=== PATIENT | female | born 1970 | race Caucasian/White ===

== ENCOUNTER → 2017-04-11 16:13 | Outpatient (CLI) | payer OTHER, SELFPAY ==
--- NOTE | 2017-04-11 16:21 | MM_ITS ---
MM Dig screening mamm BI w/CAD CAD Screening ORDERING PHYSICIAN : Gladis Valdez PATIENT AGE: 47 years GENDER: Female COMPARISON: Previous mammograms: 2015 and September 2012. INDICATION: No hormones. No new complaints.Family history. Maternal grandmother with breast cancer TECHNIQUE: Standard CC and MLO images were obtained. R2 CAD reviewed. FINDINGS: Mild to moderate scattered fibroglandular elements bilaterally. Mild/moderate fatty changes bilaterally. RIGHT BREAST:Stable small lymph nodes right axilla as well as a deep intramammary lymph node at the lateral right breast. At the inframammary fold again note small punctate benign calcifications. Stable and unchanged. . LEFT BREAST:There is also a stable intramammary node at the deep lateral left breast. No new findings otherwise left breast. Stable small dermal calcifications inferior left breast near inframammary fold IMPRESSION: ...... No significant appearing new findings . Follow-up in one year adequate BI-RADS Category: 2 Benign Finding(s) RECOMMENDED FOLLOW-UP: 1YR - 1 YEAR FOLLOW-UP (A letter has been sent to the patient regarding results of the study.)
== END ==
PROVIDERS: Family Provider Family Medicine; PCP Family Medicine; Visit Provider Nurse Practitioner
DX: Z12.31 Encounter for screening mammogram for malignant neoplasm of breast (principal)
CPT/HCPCS: 77067

== ENCOUNTER → 2017-08-26 09:59 | Outpatient (POV) | payer OTHER, SELFPAY | PROVIDERS: Visit Provider Physician Assistant | DX: Z00.00 Encounter for general adult medical examination without abnormal findings (principal) ==

== ENCOUNTER → 2018-01-21 08:56 | Outpatient (POV) | payer OTHER, SELFPAY | PROVIDERS: Family Provider Family Medicine; Visit Provider Dermatology | DX: Z00.00 Encounter for general adult medical examination without abnormal findings (principal) ==

== ENCOUNTER → 2018-07-17 08:12 | Outpatient (POV) | payer OTHER, SELFPAY | PROVIDERS: Visit Provider Dentist | DX: Z00.00 Encounter for general adult medical examination without abnormal findings (principal) ==

== ENCOUNTER → 2019-01-27 13:35 | Outpatient (POV) | payer OTHER, SELFPAY | PROVIDERS: Visit Provider Dermatology | DX: Z00.00 Encounter for general adult medical examination without abnormal findings (principal) ==

== ENCOUNTER → 2019-02-20 10:14 | Outpatient (CLI) | payer OTHER, SELFPAY ==
--- NOTE | 2019-02-20 10:16 | US_ITS ---
PROCEDURE: US TRANSVAGINAL CLINICAL INDICATION: US T/V- pelvic pain- check for cyst COMPARISON: No exams were available for comparison FINDINGS: There has been prior hysterectomy. Vaginal cuff has an unremarkable appearance. In the left adnexal region there is a 8 7 cm cyst. There appears to be a loose 1 small septation. No other abnormalities evident. IMPRESSION: Prior hysterectomy with 8 cm left-sided pelvic cyst which may be due to ovarian remnant cyst. Recommend follow-up to confirm stability/resolution Dictated by: Louie Villatoro MD 02/20/2019 18:11 Electronically signed by Louie Villatoro MD in [place] 02/20/2019 18:11
== END ==
PROVIDERS: PCP Nurse Practitioner Family; Visit Provider Nurse Practitioner Obstetrics & Gynecology
DX: R10.2 Pelvic and perineal pain (principal)
CPT/HCPCS: 76830

== ENCOUNTER → 2019-03-17 09:01 | Outpatient (CLI) | payer OTHER, SELFPAY ==
--- NOTE | 2019-03-17 09:03 | ECG_ITS ---
APPROVED REPORT Exam: Resting ECG HR:71 bpm ECG Measurements Heart Rate 71 AXES AL 150 P 52 QRSd 88 QRS 30 QT 380 T 46 QTc 412 <Conclusion> Normal sinus rhythm Possible Left atrial enlargement Borderline ECG Electronically signed by : Fili Bardales, 03/17/2019 14:10:19
[2019-03-17 09:52] LABS: Basophils % 0.6 % (0.1-2.0); Eosinophils # 0.1 K/mm3 (0.0-0.4); Eosinophils % 2.1 % (0.1-12.0); Hematocrit 41.9 % (37.0-47.0); Hemoglobin 13.6 g/dL (12.2-16.2); Lymphocytes # 2.3 K/mm3 (0.7-4.5); Lymphocytes % 37.7 % (10-50); Mean Corpuscular HGB Conc 32.3 g/dL (31.8-35.4); Mean Corpuscular Hemoglobin 31.3 pg (27.0-31.2); Mean Corpuscular Volume 96.8 fl (81-99); Mean Platelet Volume 7.2 fl (7.4-10.4); Monocytes # 0.4 K/mm3 (0.1-1.0); Monocytes % 6.6 % (1.7-9.3); Neutrophils # 3.2 K/mm3 (1.8-7.8); Neutrophils % 53.1 % (37.0-80.0); Platelet Count 442 K/mm3 (142-424); Red Blood Count 4.33 M/mm3 (4.20-5.40); Red Cell Distribution Width 13.3 % (11.5-17.5); White Blood Count 6.1 K/mm3 (4.8-10.8)
[2019-03-17 10:52] LABS: Anion Gap 13.4 mEq/L (5-15); Blood Urea Nitrogen 12 mg/dL (7-18); Calcium 8.8 mg/dL (8.5-10.1); Carbon Dioxide 29 mmol/L (21.0-32.0); Chloride 102 mmol/L (98-107); Creatinine,Serum 0.61 mg/dL (0.55-1.02); Estimated Glomerular Filt Rate 104 ml/min (>60); GFR (African American) 126 ML/MIN (>60); Glucose 93 mg/dL (74-106); Potassium 4.4 mmoL/L (3.5-5.1); Sodium 140 mmol/L (136-145)
[2019-03-18 15:31] LABS: Estradiol 118.1 pg/mL (.); FSH 9.3 mIU/mL (.); LH 9.8 mIU/mL (.)
== END ==
PROVIDERS: PCP Family Medicine; Visit Provider Nurse Practitioner Obstetrics & Gynecology
DX: N83.202 Unspecified ovarian cyst, left side (principal); R10.2 Pelvic and perineal pain; R53.82 Chronic fatigue, unspecified; Z01.818 Encounter for other preprocedural examination
CPT/HCPCS: 36415; 80048; 82670; 83001; 83002; 85025; 93005

== ENCOUNTER 2019-10-02 15:25 | Emergency (ER) | payer OTHER, SELFPAY ==
[2019-10-02 16:05] VITALS: BP 129/87; PULSE 87; RESP 19; TEMP 37.1; O2SAT 94; BMI 33.5
--- NOTE | 2019-10-02 16:34 | XR_ITS ---
PROCEDURE: XR CHEST 2V Patient Age:49Y CLINICAL HISTORY: cough-wheezing coughing exposure to covid Smoker COMPARISON: ABDPELW/O CT ABD PELVIS W/O CONTRAST from 06/30/2013 ABDPELW/O CT ABD PELVIS W/O CONTRAST from 11/19/2013 FINDINGS: Th lungs well expanded and clear with nothing definitely acute Overlapping breast density adds to density towards the lung bases bilaterally particularly on the left but I see no convincing for seem definitive infiltrate. 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 No definitive associated findings on the frontal projection either. Most likely baseline appearance. Heart normal size with normal pulmonary vascularity... Isha and no pleural effusion or pneumothorax but mediastinal structures satisfactory. Previous anterior fusion lower C-spine. No acute bony abnormalities. Chest wall intact IMPRESSION: Nothing definitely acute. No definitive pneumonia Upper normal markings towards the posterior lung bases I believe is similar to previous studies However if symptoms should progress consider follow-up CXR Dictated by: Inocencio Gomez MD 10/04/2019 21:32 Electronically signed by Inocencio Gomez MD in [place] 10/04/2019 21:32
--- NOTE | 2019-10-02 16:42 | HMH.EDUTC ---
[facility] [place] Clinical Impression: Encounter for laboratory testing for COVID-19 virus Disposition: Home, Self-Care Condition on Discharge: Good Instructions: DI for Cough -- Adult, Preventing the Spread of Coronavirus Discharge Instructions Additional Instructions: Make sure to call back on Saturday to the [facility] to see if your test results are back *No work until negative test result Go home and self quarantine as you was advised in the [facility] and was given handout to follow with Quarantine instructions DO not be out in public or around anyone until negative COVID test Return if needed Straight to ER if any life threatening symptoms Follow up with PCP if no improvement or any worsening of symptoms Continue to use inhaler as prescribed Prescriptions: Azithromycin [Z-Francis 250mg Tab] 250 mg PO DIRECTED #6 tab Transmission Status: Pending to [facility] #[id number] Referrals: Lalit Honeycutt MD [Primary Care Provider] - As needed Forms: Work/School Release Time of Disposition: 16:52 Medical Decision Making - Brennan Inquiry Pt receiving controlled substance: No Brennan was queried for this patient: No Vital Signs: 10/02/19 16:05 Temperature 98.7 F Temperature Source Oral Pulse Rate [Right Brachial] 87 Respiratory Rate 19 Blood Pressure [Right Arm] 129/87 Blood Pressure Mean [Right Arm] 101 Blood Pressure Source [Right Arm] Automatic Cuff Blood Pressure Position [Right Arm] Sitting 02 Sat by Pulse Oximetry 94 L Oxygen Delivery Method Room Air Orders (Tests/Meds): ORDERS Category Date Time Status CXR 2 view (NOT portable) [XR chest 2V] Stat Exams 10/02/19 16:34 Ordered SARS-CoV-2, [facility] ([place]) Stat Lab 10/02/19 16:00 Received - Radiology Data #1 Image(s): Chest Image Reviewed: Yes I reviewed the patient's radiology image Bronchitis [facility] [place] HPI - General Stated complaint: exposure to Covid 19 Time Seen by Provider: 10/02/19 16:42 Mode of Arrival: Ambulatory Source of Information: Patient Limitations: No Limitations Description of Symptoms (Recalled from Triage Doc. by RN): PATIENT STATES SHE WAS EXPOSED TO COVID-19 AT WORK ON SATURDAY. C/O DRY COUGH. DENIES ANY OTHER SYMPTOMS HEENT Symptoms (Recalled from RN notes): No Resp Symptoms (Recalled from RN notes): Yes Skin Symptoms (Recalled from RN notes): No MS Symptoms (Recalled from RN notes): No Functional Status (Recalled from RN notes): WNL - History of Present Illness Provider Complaint: Patient states that she was at work on Sat when she was exposed to patient with COVID-19 that tested positive the next day States that she has been having a dry cough but has a history of asthma and not sure if that is causing it and having runny nose States that she hasnt had fever that she is aware of and boss wanted her to come and get tested also everyday smoker - Related Data Home Medications Medication Instructions Recorded Confirmed hydrocodone 5 mg-acetaminophen 325 5 mg PO NEEDED PRN tab 08/01/18 04/06/19 mg tablet naproxen 500 mg tablet 500 mg PO DAILY tab 08/01/18 04/06/19 albuterol sulfate 90 mcg/actuation 2 % INHALATION DAILY 04/06/19 04/23/19 aerosol inhaler Previous Rx's Medication Instructions Recorded Ondansetron [Zofran 4mg ODT] 4 mg PO Q8HP PRN #20 tab.rapdis 03/01/19 estradiol 2 mg tablet 2 mg PO DAILY #90 tab 07/13/19 Azithromycin [Z-Francis 250mg Tab] 250 mg PO DIRECTED #6 tab 10/02/19 Allergies Allergy/AdvReac Type Severity Reaction Status Date / Time No Known Allergies Allergy Verified 04/06/19 12:00 - Worker's Comp Is this a Worker's Comp case?: No H History - Hepatitis A Screen Drug use history?: No High risk sexual behaviors?: No History of sexually transmitted infection?: No Currently employed?: No Childcare worker?: No Do you have indoor plumbing?: Yes Do you have electricity?: Yes Attestation statement:: This patient has been screened for Hepatitis A risk factors.
[2019-10-02 17:02] VITALS: BP 129/87; PULSE 87; RESP 19; TEMP 37.1; O2SAT 96
[2019-10-04 16:10] LABS: Covid-19 Nasal PCR Sendout UK Not Detected
== END 2019-10-02 17:02 | disposition home or self-care (01) ==
PROVIDERS: Emergency Provider Nurse Practitioner; PCP Family Medicine
DX: Z20.828 Contact with and (suspected) exposure to other viral communicable diseases (principal); J45.909 Unspecified asthma, uncomplicated; F17.210 Nicotine dependence, cigarettes, uncomplicated; Z90.49 Acquired absence of other specified parts of digestive tract; Z90.79 Acquired absence of other genital organ(s)
CPT/HCPCS: 71046; 99201; U0003

== ENCOUNTER → 2020-03-15 14:50 | Outpatient (CLI) | payer OTHER, SELFPAY ==
[2020-03-17 12:40] LABS: Covid-19 Nasal PCR Sendout Lex Not Detected
== END ==
PROVIDERS: PCP Family Medicine; Visit Provider Nurse Practitioner Family
DX: Z03.818 Encounter for observation for suspected exposure to other biological agents ruled out (principal)
CPT/HCPCS: U0004

== ENCOUNTER → 2020-03-22 08:59 | Outpatient (POV) | payer OTHER, SELFPAY | PROVIDERS: Visit Provider Dermatology | DX: Z00.00 Encounter for general adult medical examination without abnormal findings (principal) ==

== ENCOUNTER → 2020-10-10 14:15 | Outpatient (CLI) | payer OTHER, SELFPAY ==
--- NOTE | 2020-10-10 14:21 | XR_ITS ---
PROCEDURE: XR CHEST 2V CLINICAL HISTORY: COUGH COMPARISON: CR XR CHEST 2V from 10/02/2019 FINDINGS: The cardiomediastinal silhouette and pulmonary vascularity are within normal limits. The lungs are clear without infiltrates, suspicious nodules, or pleural effusions. No acute bony abnormalities. IMPRESSION: No acute findings. Dictated by: Louie Villatoro MD 10/10/2020 15:34 Louie Villatoro MD in [place] 10/10/2020 15:34
== END ==
PROVIDERS: PCP Family Medicine; Visit Provider Nurse Practitioner Family
DX: R05 Cough (principal); J45.20 Mild intermittent asthma, uncomplicated
CPT/HCPCS: 71046; 94060

== ENCOUNTER → 2020-11-18 10:28 | Outpatient (CLI) | payer OTHER, SELFPAY | PROVIDERS: Visit Provider Internal Medicine Gastroenterology | DX: Z01.812 Encounter for preprocedural laboratory examination (principal); Z11.52 Encounter for screening for COVID-19; Z12.11 Encounter for screening for malignant neoplasm of colon | CPT/HCPCS: U0003 ==

== ENCOUNTER 2020-11-21 09:26 | Day surgery (SDC) | payer OTHER, SELFPAY ==
[2020-11-16 11:56] VITALS: BMI 35.5
[2020-11-21 09:44] VITALS: BP 112/65; PULSE 89; RESP 16; TEMP 36.9; O2SAT 95
[2020-11-21 10:34] VITALS: O2SAT 98
--- NOTE | 2020-11-21 10:35 | HMH.PROC ---
[facility] Procedure Note Procedure Note:: Colonoscopy Procedure Report: Colonoscopy with cold snare polypectomy and cold biopsies Endoscopist: Ernesto Christian II, MD Referring physician: ROLO Esposito Date of Procedure: November 21, 2020 Equipment: Olympus 190 variable stiffness pediatric colonoscope Sedation: MAC sedation Indication: Mrs. Ribeiro is a 50-year-old female who is here for diagnostic colonoscopy. The patient was having alternating IBS with constipation and diarrhea. 7 to 8 months ago, she developed more urgency with diarrhea. She gets more loose bowel movements in the morning with bowel frequency and some urgency. Her diarrhea did improve with colestipol. She also has had left upper quadrant abdominal pain. She has had prior cholecystectomy in 2017. The patient does report some bloating. She does state that her maternal grandmother had colon cancer. She had a colonoscopy 10 years ago at which time a polyp was removed. The patient was taking naproxen and also [place] (by mouth 3 times daily). The patient reports no rectal bleeding or weight loss. Procedure: Prior to the procedure, a history and physical exam was performed, and patient's medications and allergies were reviewed. The risks, benefits and alternatives of the sedation and procedure were discussed with the patient. All questions were answered and informed consent was obtained. The patient was brought to the procedure room. Patient identification and proposed procedure were verified by the physician and the nurse. The patient was placed in a left lateral decubitus position and the scope was passed under direct vision. Throughout the procedure, the patient's blood pressure, pulse, and oxygen saturations were monitored continuously. The colonoscopy was accomplished without difficulty. The patient tolerated the procedure well. Findings: On digital rectal examination there was normal rectal tone. There were no external hemorrhoids. The colonoscope was introduced through the anal canal to the rectum and advanced to the cecum. The ileocecal valve and appendiceal orifice were identified. The scope was advanced a short distance into the ileum which appeared grossly normal. The scope was then withdrawn into the colon. The cecum, ascending and transverse colon and mucosa were grossly normal. Cold biopsies were taken from the right colon to rule out microscopic colitis. There was some angulation at the splenic flexure suggestive of splenic flexure syndrome. There were 2 diminutive polyps in the descending colon (both 4 mm) which were removed via cold snare polypectomy. There were mildly scattered diverticuli throughout the descending and sigmoid colon (LEFT colon). The rectum itself was normal. Upon retroflexion within the rectum there were grade 1-2 internal hemorrhoids. The preparation was excellent throughout with Napier Preparation Score of 9. The cecal time was 12 minutes. Impression: 1. Diminutive colonic polyps x2 2. 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 Mild left-sided diverticulosis 4. Grade 1-2 internal hemorrhoids Plan: I would continue colestipol and I would add bulking fiber (FiberCon). We will discuss dietary measures and treatment options for the functional intestinal/colonic pain (from splenic flexure syndrome). I will follow up the polyp histology and recommend repeat screening/surveillance colonoscopy again in 7 to 10 years.
--- NOTE | 2020-11-21 10:37 | P.PN_ITS ---
[facility] Anesthesia Checklist - Patient Identification Patient Identification: Arm Band - Structural Data Admitted From: Home Planned Operative Procedure/s: colonoscopy Consent for Planned Operative Procedure(s) Verified: Yes Verified Documents: Surgical Consent, History and Physical - NPO Status Verified Time NPO: 00:00 - Additional verifications Anesthesia Reactions: No Hx Blood Transfusions: No Blood Transfusion Reaction: No - Airway Assessment C-Spine Mobility Assessed: Yes (mp2) TMJ Mobility Assessed: Yes Dentition: Good Dentition - Neurological Assessment Level of Consciousness: Awake, Alert - Anesthesia Plan Anesthesia Risk discussed: Yes Anesthesia Plan: Verified ASA Class: II Anesthesia Type: MAC [facility] History I have reviewed the patient's past medical history: Yes Medical History: Reports:: Asthma Denies:: Cancer, Diabetes Mellitus Type 1, Diabetes Mellitus Type 2, Hypertension, Internal Pacemaker, MRSA, Seizures *Have you ever received a pneumonia vaccine?: No *Have you received a flu vaccine this season?: No Other Medical History: Reports: Other. Denies: Blood Transfusion Reaction Anesthesia experience/problems:: nac Other Surgeries: Yes: Cholecystectomy, , Dilation and Curettage, Hysterectomy-Total, Other. No: Pacemaker Amputation: No Fractures: No - *Social History Last grade of school completed: Some college Smoking Status: Current every day smoker Tobacco Type: cigarettes # Packs/Day (cigarettes): 1 Alcohol Intake: never Substance Use Type: denies use *Occupational Status:: employed Housing: house Household Members: family *Travel in the last 8 weeks: None Family Hx:: Cancer DIRECTOR OF HOME ECONOMICS history: Spontaneous , Additional DIRECTOR OF HOME ECONOMICS History
[2020-11-21 11:12] VITALS: BP 123/70; PULSE 81; RESP 12; TEMP 36.3; O2SAT 98
[2020-11-21 11:22] VITALS: BP 109/73; PULSE 84; RESP 16; O2SAT 95
[2020-11-21 11:32] VITALS: BP 122/68; PULSE 79; RESP 16; O2SAT 98
[2020-11-21 11:42] VITALS: BP 107/66; PULSE 70; RESP 16; TEMP 36.3; O2SAT 94
== END 2020-11-21 11:43 | disposition home or self-care (01) ==
LOC: OUTP 09:27
PROVIDERS: PCP Nurse Practitioner Family; Visit Provider Internal Medicine Gastroenterology
PROC: 0DJD8ZZ Inspection of Lower Intestinal Tract, Via Natural or Artificial Opening Endoscopic (ICD-10-PCS; CPT 45378; principal; 2020-11-21 10:30)
DX: K63.5 Polyp of colon; K63.9 Disease of intestine, unspecified; K57.32 Diverticulitis of large intestine without perforation or abscess without bleeding; K64.0 First degree hemorrhoids; J45.909 Unspecified asthma, uncomplicated; Z90.49 Acquired absence of other specified parts of digestive tract; Z72.0 Tobacco use; Z80.1 Family history of malignant neoplasm of trachea, bronchus and lung; Z83.3 Family history of diabetes mellitus; Z87.39 Personal history of other diseases of the musculoskeletal system and connective tissue; Z79.890 Hormone replacement therapy; Z79.899 Other long term (current) drug therapy; Z79.51 Long term (current) use of inhaled steroids
CPT/HCPCS: 45385; 45380

== ENCOUNTER → 2021-02-02 08:08 | Outpatient (CLI) | payer OTHER, SELFPAY | PROVIDERS: PCP Family Medicine; Visit Provider Nurse Practitioner | DX: Z20.822 Contact with and (suspected) exposure to COVID-19 (principal) | CPT/HCPCS: C9803; U0003; U0005 ==

== ENCOUNTER → 2021-04-28 10:18 | Outpatient (CLI) | payer OTHER, SELFPAY ==
--- NOTE | 2021-04-28 10:25 | US_ITS ---
FINAL REPORT TECHNIQUE: Ultrasound images of the kidneys and bladder were obtained. CLINICAL HISTORY: possible renal cyst FINDINGS: The right kidney measures 13.9 cm in length. It is normal in echogenicity. There is no hydronephrosis. No mass or cyst is identified. The left kidney measures 12.5 cm in length. It is normal in echogenicity. There is no hydronephrosis. No mass or cyst is identified. The spleen is unremarkable, measuring 9.3 cm. The urinary bladder is unremarkable. IMPRESSION: No hydronephrosis, cyst or mass. Reviewed, Interpreted and Dictated by Mejia Maguire III, MD Transcribed by Taylor Mann Authenticated by Mejia Maguire III, MD on 04/28/2021 11:31:14 AM [facility]
== END ==
PROVIDERS: PCP Family Medicine; Visit Provider Nurse Practitioner Family
DX: N28.1 Cyst of kidney, acquired (principal)
CPT/HCPCS: 76770

== ENCOUNTER → 2021-07-18 08:32 | Outpatient (POV) | payer OTHER, SELFPAY ==
[2021-07-18 10:12] LABS: Basophils # 0.1 K/mm3 (0-0.2); Basophils % 1.2 % (0.1-2.0); Eosinophils # 0.1 K/mm3 (0.0-0.4); Eosinophils % 1.5 % (0.1-12.0); Hematocrit 40.4 % (37.0-47.0); Hemoglobin 13.5 g/dL (12.2-16.2); Lymphocytes # 2.5 K/mm3 (0.7-4.5); Lymphocytes % 37.3 % (10-50); Mean Corpuscular HGB Conc 33.5 g/dL (31.8-35.4); Mean Corpuscular Hemoglobin 31.5 pg (27.0-31.2); Mean Corpuscular Volume 94.1 fl (81-99); Mean Platelet Volume 6.9 fl (7.4-10.4); Monocytes # 0.4 K/mm3 (0.1-1.0); Neutrophils # 3.6 K/mm3 (1.8-7.8); Neutrophils % 54.1 % (37.0-80.0); Platelet Count 392 K/mm3 (142-424); Red Cell Distribution Width 13.2 % (11.5-17.5); White Blood Count 6.7 K/mm3 (4.8-10.8)
[2021-07-18 10:39] LABS: Chloride 103 mmol/L (98-107); Sodium 137 mmol/L (136-145)
[2021-07-18 10:40] LABS: Potassium 4.1 mmoL/L (3.5-5.1)
[2021-07-18 10:43] LABS: Alanine Aminotransferase 13 U/L (12-78); Alkaline Phosphatase 86 U/L (38-126); Aspartate Amino Transferase 19 U/L (14-36); Bilirubin,Total 0.3 mg/dl (0.2-1.3); Blood Urea Nitrogen 13 mg/dl (7-17); Calcium 8.5 mg/dl (8.4-10.2); Estimated Glomerular Filt Rate 105 ml/min (>60); GFR (African American) 128 ML/MIN (>60); Glucose 110 mg/dl (74-100); Total Protein,Serum 6.3 g/dl (6.3-8.2)
[2021-07-18 15:12] LABS: Anion Gap 8.1 mEq/L (5-15); Carbon Dioxide 30 mmol/L (22.0-30.0)
[2021-07-18 15:13] LABS: Albumin Level 3.7 g/dl (3.5-5.0); Albumin/Globulin Ratio 1.4 (1.1-1.8); Globulin 2.6 g/dL (1.3-3.2)
[2021-07-20 22:08] LABS: QuantiFERON-TB Gold Plus Negative (Negative)
== END ==
PROVIDERS: Visit Provider Dermatology
DX: Z79.899 Other long term (current) drug therapy (principal)
CPT/HCPCS: 36415; 80053; 85025; 86480

== ENCOUNTER 2021-09-04 13:50 | Emergency (ER) | payer OTHER, SELFPAY ==
[2021-09-04 14:42] VITALS: BP 114/62; PULSE 95; RESP 19; TEMP 36.7; O2SAT 94; BMI 34.8
--- NOTE | 2021-09-04 14:55 | HMH.EDUTC ---
[facility] [place] Clinical Impression: Bronchitis Sinusitis Qualifiers: Sinusitis location: unspecified location Chronicity: acute Recurrence: non-recurrent Qualified Code(s): J01.90 - Acute sinusitis, unspecified Disposition: Home, Self-Care Condition on Discharge: Good Instructions: DI for Sinusitis, DI for Acute Bronchitis Additional Instructions: Drink plenty of fluids. Take tylenol or ibuprofen for pain or fever. Take the medications as directed. Follow up with your regular doctor. GO TO THE ER FOR ANY WORSENING SYMPTOMS Don't start the oral steroids until tomorrow, since you had the shot here today. The cough medication (promethazine dm) will make you drowsy, so don't drive or operate heavy machinery after taking it. Prescriptions: Promethazine/Dextromethorphan [Promethazine-Dm Syrup] 5 ml PO Q6HP PRN #240 ml PRN Reason: Cough Transmission Status: Received by [id number] Amoxicillin/Potassium Clav [Amox-Clav 875-125 mg Tablet] 1 tab PO BID #20 tab Transmission Status: Received by [id number] predniSONE [Deltasone 10mg tablet] 10 mg PO DAILY 9 Days #21 tab Transmission Status: Received by [facility] guaiFENesin [Mucinex 600mg tablet] 1 - 2 tab PO BIDP PRN #30 tab PRN Reason: Congestion Transmission Status: Received by [id number] Referrals: Lalit Honeycutt MD [Primary Care Provider] - Time of Disposition: 15:23 Medical Decision Making - Medical Records Medical records reviewed: No: I reviewed the patient's medical records. - Brennan Inquiry Pt receiving controlled substance: No Vital Signs: 09/04/21 14:42 09/04/21 15:42 Temperature 98.0 F 98.0 F Temperature Source Oral Pulse Rate 95 H Pulse Rate [Left Radial] 95 H Respiratory Rate 19 19 Blood Pressure 114/62 Blood Pressure [Right Arm] 114/62 Blood Pressure Mean [Right Arm] 79 02 Sat by Pulse Oximetry 94 L Orders (Tests/Meds): ED MEDICATIONS Discontinued Medications Generic Name Dose Route Start Last Admin Trade Name Freq PRN Reason Stop Dose Admin Ceftriaxone Sodium 1 gm 09/04/21 15:00 09/04/21 15:10 Ceftriaxone 1gm Vial IM 09/04/21 15:01 1 gm ONCE ONE Administration Lidocaine HCl 0 ml 09/04/21 15:00 09/04/21 15:10 Lidocaine 1% 5ml Pf Vial IM 09/04/21 15:01 2 ml ONCE ONE Administration Methylprednisolone Sodium Succinate 125 mg 09/04/21 15:00 09/04/21 15:10 Methylprednisolone Sod Succ 125mg Vial IM 09/04/21 15:01 125 mg ONCE ONE Administration [facility] [place] - General Stated complaint: congestion, cough Time Seen by Provider: 09/04/21 14:55 Mode of Arrival: Ambulatory Source of Information: Patient Limitations: No Limitations Description of Symptoms (Recalled from Triage Doc. by RN): pt here for congestion, coughing, sinus infection, pt states that she cant sleep tonight symptoms began 2 weeks ago HEENT Symptoms (Recalled from RN notes): Yes Resp Symptoms (Recalled from RN notes): Yes Skin Symptoms (Recalled from RN notes): No MS Symptoms (Recalled from RN notes): No Functional Status (Recalled from RN notes): wnl - History of Present Illness Provider Complaint: She states that for the past 2 weeks she has had chest congestion and sinus congestion. - Related Data Home Medications Medication Instructions Recorded Confirmed hydrocodone 5 mg-acetaminophen 325 5 mg PO NEEDED PRN tab 08/01/18 11/21/20 mg tablet naproxen 500 mg tablet 500 mg PO DAILY tab 08/01/18 11/21/20 albuterol sulfate 90 mcg/actuation 2 % INHALATION DAILY 04/06/19 11/21/20 aerosol inhaler Previous Rx's Medication Instructions Recorded Ondansetron [Zofran 4mg ODT] 4 mg PO Q8HP PRN #20 tab.rapdis 03/01/19 estradiol 2 mg tablet See Rx Instructions .ROUTE 06/27/21 .COMPLEX #90 tab Amoxicillin/Potassium Clav 1 tab PO BID #20 tab 09/04/21 [Amox-Clav 875-125 mg Tablet] Promethazine/Dextromethorphan 5 ml PO Q6HP PRN #240
[2021-09-04 15:42] VITALS: BP 114/62; PULSE 95; RESP 19; TEMP 36.7
== END 2021-09-04 15:43 | disposition home or self-care (01) ==
PROVIDERS: Emergency Provider Nurse Practitioner Family; PCP Family Medicine
DX: J01.90 Acute sinusitis, unspecified (principal); J45.909 Unspecified asthma, uncomplicated; F17.210 Nicotine dependence, cigarettes, uncomplicated; Z20.822 Contact with and (suspected) exposure to COVID-19; Z79.1 Long term (current) use of non-steroidal anti-inflammatories (NSAID); Z79.51 Long term (current) use of inhaled steroids; Z79.52 Long term (current) use of systemic steroids; Z79.899 Other long term (current) drug therapy; Z79.890 Hormone replacement therapy; Z80.9 Family history of malignant neoplasm, unspecified
CPT/HCPCS: 96372; 99213; C9803; G0463; J0696; U0003; U0005

== ENCOUNTER → 2021-09-11 11:15 | Outpatient (CLI) | payer BC, SELFPAY | PROVIDERS: PCP Nurse Practitioner Family; Visit Provider Nurse Practitioner Family | DX: U07.1 COVID-19 (principal) | CPT/HCPCS: 87275; 87276; C9803; U0003; U0005 ==

== ENCOUNTER → 2022-03-08 13:20 | Outpatient (CLI) | payer BC, SELFPAY ==
[2022-03-13 15:12] LABS: Pancreatic Elastase, Fecal >500 (>200)
== END ==
PROVIDERS: Internal Medicine Gastroenterology; PCP Nurse Practitioner Family; Visit Provider Nurse Practitioner Family
DX: K22.70 Barrett's esophagus without dysplasia (principal); R14.0 Abdominal distension (gaseous); R10.9 Unspecified abdominal pain
CPT/HCPCS: 82656

== ENCOUNTER → 2022-05-03 06:19 | Outpatient (CLI) | payer BC, SELFPAY | PROVIDERS: PCP Student in an Organized Health Care Education/Training Program; Visit Provider Student in an Organized Health Care Education/Training Program | DX: N39.0 Urinary tract infection, site not specified (principal); B96.29 Other Escherichia coli [E. coli] as the cause of diseases classified elsewhere | CPT/HCPCS: 87086; 87088; 87186 ==

== ENCOUNTER → 2022-07-31 10:28 | Outpatient (CLI) | payer BC, SELFPAY ==
[2022-07-31 11:49] LABS: Basophils # 0.1 K/mm3 (0-0.2); Basophils % 0.6 % (0.1-2.0); Eosinophils # 0.2 K/mm3 (0.0-0.4); Eosinophils % 1.7 % (0.1-12.0); Hematocrit 44.5 % (37.0-47.0); Hemoglobin 14.6 g/dL (12.2-16.2); Lymphocytes # 2.5 K/mm3 (0.7-4.5); Lymphocytes % 28.9 % (10-50); Mean Corpuscular HGB Conc 32.9 g/dL (31.8-35.4); Mean Corpuscular Hemoglobin 31.1 pg (27.0-31.2); Mean Corpuscular Volume 94.5 fl (81-99); Mean Platelet Volume 7.3 fl (7.4-10.4); Monocytes # 0.4 K/mm3 (0.1-1.0); Monocytes % 4.8 % (1.7-9.3); Neutrophils # 5.6 K/mm3 (1.8-7.8); Platelet Count 343 K/mm3 (142-424); Red Cell Distribution Width 13.4 % (11.5-17.5); White Blood Count 8.7 K/mm3 (4.8-10.8)
[2022-07-31 12:00] LABS: Chloride 99 mmol/L (98-107); Sodium 135 mmol/L (136-145)
[2022-07-31 12:03] LABS: Alanine Aminotransferase 18 U/L (12-78); Albumin/Globulin Ratio 1.4 (1.1-1.8); Alkaline Phosphatase 88 U/L (38-126); Aspartate Amino Transferase 26 U/L (14-36); Bilirubin,Total 0.4 mg/dl (0.2-1.3); Blood Urea Nitrogen 11 mg/dl (7-17); Calcium 8.6 mg/dl (8.4-10.2); Carbon Dioxide 34 mmol/L (22.0-30.0); Estimated Glomerular Filt Rate 130 ml/min (>60); GFR (African American) 157 ML/MIN (>60); Globulin 2.9 g/dL (1.3-3.2); Glucose 118 mg/dl (74-100); Total Protein,Serum 6.9 g/dl (6.3-8.2)
[2022-08-03 15:06] LABS: QuantiFERON-TB Gold Plus Negative (Negative)
== END ==
PROVIDERS: PCP Nurse Practitioner Family; Visit Provider Dermatology
DX: L40.8 Other psoriasis (principal)
CPT/HCPCS: 36415; 80053; 85025; 86480

== ENCOUNTER → 2022-08-07 13:09 | Outpatient (POV) | payer BC, SELFPAY | PROVIDERS: Visit Provider Dermatology | DX: Z00.00 Encounter for general adult medical examination without abnormal findings (principal) ==

== ENCOUNTER → 2022-11-17 08:04 | Outpatient (CLI) | payer BC, SELFPAY ==
[2022-11-17 08:43] LABS: Hemoglobin A1C 5.8 % (4.0-6.0)
[2022-11-17 08:48] LABS: Chol/HDL Ratio 5.5 (1-3.5); Cholesterol 266 mg/dl (140-200); HDL Cholesterol 48 mg/dl (40-60); Triglycerides 345 mg/dl (30-150); VLDL Cholesterol 69 mg/dL (0-40)
[2022-11-17 09:05] LABS: Free T4 (Free Thyroxine) 0.95 ng/dl (0.78-2.19)
[2022-11-17 09:19] LABS: 25-OH Vitamin D, Total 23.9 ng/mL (30-100); Thyroid Stimulating Hormone 0.86 uIU/mL (0.465-4.68)
== END ==
PROVIDERS: PCP Internal Medicine; Visit Provider Internal Medicine
DX: Z00.00 Encounter for general adult medical examination without abnormal findings (principal); E55.9 Vitamin D deficiency, unspecified; Z79.899 Other long term (current) drug therapy
CPT/HCPCS: 36415; 80061; 82306; 83036; 84439; 84443

== ENCOUNTER → 2022-12-03 12:51 | Outpatient (CLI) | payer BC, SELFPAY ==
[2022-12-03 12:58] LABS: Coronavirus 19, PCR Not Detected (NotDetected); Influenza A, PCR Not Detected (NotDetected); Influenza B, PCR Not Detected (NotDetected)
--- NOTE | 2022-12-03 13:02 | XR_ITS ---
FINAL REPORT TECHNIQUE: Chest PA & Lateral CLINICAL HISTORY: Cough, shortness of breath COMPARISON: 10/10/2020 FINDINGS: 2 views of the chest were performed. The heart size is normal. The mediastinum is within normal limits. There is no acute cardiopulmonary process. There are no pleural effusions. There is no pneumothorax. The bony thorax appears intact. There is cervical fusion hardware noted in the lower cervical region. IMPRESSION: No acute cardiopulmonary process. Reviewed, Interpreted and Dictated by Vikas Sorensen MD Transcribed by Davida Luke Authenticated and [facility]
== END ==
LOC: LAB 12:51
PROVIDERS: PCP Internal Medicine; Visit Provider Internal Medicine
DX: J22 Unspecified acute lower respiratory infection (principal)
CPT/HCPCS: 71046; 87636

== ENCOUNTER 2023-08-06 10:55 | Outpatient (CLI) | payer BC, SELFPAY ==
--- NOTE | 2023-08-06 10:56 | MM_ITS ---
PROCEDURE INFORMATION: Exam: MG Bilateral Screening 3D Mammography Exam date and time: 08/06/2023 10:49 AM Age: 53 years old Clinical indication: Screening examination TECHNIQUE: Imaging protocol: Bilateral Screening tomosynthesis and 2D mammography including computer-aided detection (CAD) when performed. COMPARISON: 1. MG SCBI MM Dig screening mamm BI w/CAD 04/11/2017 4:53 PM 2. MG DMSB DIG MAMM-SCREEN DIEGO 12/21/2015 8:51 AM FINDINGS: MAMMOGRAPHY: Breast composition: There are scattered areas of fibroglandular density. Mass: None. Architectural distortion: None. Calcifications: No suspicious calcifications. Asymmetric density: None. Skin thickening: None. Axillary adenopathy: None. IMPRESSION: No mammographic evidence of malignancy. Annual screening is recommended unless otherwise clinically indicated. ASSESSMENT: BI-RADS Category 1: Negative
[2023-08-06 12:08] LABS: Basophils # 0.1 K/mm3 (0-0.2); Basophils % 0.5 % (0.1-2.0); Eosinophils # 0.2 K/mm3 (0.0-0.4); Eosinophils % 1.7 % (0.1-12.0); Hematocrit 45.9 % (37.0-47.0); Hemoglobin 14.9 g/dL (12.2-16.2); Lymphocytes # 2.5 K/mm3 (0.7-4.5); Lymphocytes % 21.8 % (10-50); Mean Corpuscular HGB Conc 32.5 g/dL (31.8-35.4); Mean Corpuscular Hemoglobin 32.1 pg (27.0-31.2); Mean Corpuscular Volume 98.8 fl (81-99); Mean Platelet Volume 7.4 fl (7.4-10.4); Monocytes # 0.5 K/mm3 (0.1-1.0); Neutrophils # 8.2 K/mm3 (1.8-7.8); Platelet Count 430 K/mm3 (142-424); Red Blood Count 4.65 M/mm3 (4.20-5.40); Red Cell Distribution Width 14.2 % (11.5-17.5); White Blood Count 11.4 K/mm3 (4.8-10.8)
[2023-08-06 12:32] LABS: Alanine Aminotransferase 19 U/L (12-78); Albumin Level 4.1 g/dl (3.5-5.0); Albumin/Globulin Ratio 1.5 (1.1-1.8); Alkaline Phosphatase 86 U/L (38-126); Anion Gap 8.8 mEq/L (5-15); Aspartate Amino Transferase 30 U/L (14-36); Bilirubin,Total 0.3 mg/dl (0.2-1.3); Blood Urea Nitrogen 8 mg/dl (7-17); Calcium 9.5 mg/dl (8.4-10.2); Carbon Dioxide 31 mmol/L (22.0-30.0); Chloride 102 mmol/L (98-107); Estimated Glomerular Filt Rate 105 ml/min (>60); GFR (African American) 127 ML/MIN (>60); Globulin 2.8 g/dL (1.3-3.2); Glucose 131 mg/dl (74-100); Potassium 3.8 mmoL/L (3.5-5.1); Sodium 138 mmol/L (136-145); Total Protein,Serum 6.9 g/dl (6.3-8.2)
[2023-08-08 22:46] LABS: QuantiFERON-TB Gold Plus Negative (Negative)
== END 2023-08-06 23:59 | disposition home or self-care (01) ==
PROVIDERS: Dermatology; PCP Internal Medicine; Visit Provider Internal Medicine
DX: Z12.31 Encounter for screening mammogram for malignant neoplasm of breast (principal); L40.8 Other psoriasis
CPT/HCPCS: 36415; 77063; 77067; 80053; 85025; 86480

== ENCOUNTER 2023-08-15 12:49 | Outpatient (CLI) | payer BC, SELFPAY ==
--- NOTE | 2023-08-15 12:50 | CT_ITS ---
FINAL REPORT TECHNIQUE: Thin section axial images were obtained from the lung apices to the upper abdomen by computed tomography. Reformatted images were obtained and reviewed. This study was performed with techniques to keep radiation doses al low as reasonably achievable (ALARA). Individualized dose reduction techniques using automated exposure control or adjustment of mA and/or kV according to the patient's size were employed. CLINICAL HISTORY: lung cancer screening current smoker, 1 ppd X 20 years COMPARISON: None FINDINGS: CHEST CT LOW DOSE CTDI vol (mGy): 2.90 DLP (mGy-cm): 109.68 There is no axillary adenopathy. There is no mediastinal or hilar mass or adenopathy. The heart is normal in size. There is no pericardial or pleural effusion. Lung window images demonstrate a right lower lobe nodule measuring 6 mm best seen on image 63 of series 3. There are several other smaller adjacent nodules. Limited images of the upper abdomen are unremarkable. IMPRESSION: Lung-RADS category 3. Recommend 6 month follow up low dose chest CT. Reviewed, Interpreted and Dictated by Mejia Maguire III, MD Transcribed by Janie Granger Authenticated and . [facility]
== END 2023-08-15 23:59 | disposition home or self-care (01) ==
LOC: RAD 12:50
PROVIDERS: PCP Internal Medicine; Visit Provider Internal Medicine
DX: F17.218 Nicotine dependence, cigarettes, with other nicotine-induced disorders (principal); Z12.2 Encounter for screening for malignant neoplasm of respiratory organs
CPT/HCPCS: 71271

== ENCOUNTER 2023-10-16 14:50 | Outpatient (CLI) | payer BC, SELFPAY ==
[2023-10-16 16:05] LABS: C-Reactive Protein 19.6 mg/L (0-4)
[2023-10-16 16:28] LABS: Thyroid Stimulating Hormone 0.66 uIU/mL (0.465-4.68)
[2023-10-17 12:39] LABS: HIV (1&2) Antibody Rapid NON REACTIVE
[2023-10-18 06:13] LABS: HCV Ab Non Reactive (Non Reactive)
== END 2023-10-16 23:59 | disposition home or self-care (01) ==
LOC: LAB 14:50
PROVIDERS: PCP Internal Medicine; Visit Provider Obstetrics & Gynecology
DX: R61 Generalized hyperhidrosis; R06.2 Wheezing; F17.218 Nicotine dependence, cigarettes, with other nicotine-induced disorders; Z68.37 Body mass index [BMI] 37.0-37.9, adult; E66.01 Morbid (severe) obesity due to excess calories; F33.1 Major depressive disorder, recurrent, moderate; E55.9 Vitamin D deficiency, unspecified; Z71.6 Tobacco abuse counseling; F41.9 Anxiety disorder, unspecified
CPT/HCPCS: 86803; 86703; 36415; 83036; 84443; 86140

== ENCOUNTER 2023-11-14 09:22 | Outpatient (CLI) | payer BC, SELFPAY | END 2023-11-14 23:59 | disposition home or self-care (01) | LOC: LAB.DROPOF 11-15 09:22 | PROVIDERS: PCP Student in an Organized Health Care Education/Training Program; Visit Provider Student in an Organized Health Care Education/Training Program | DX: J06.9 Acute upper respiratory infection, unspecified (principal) | CPT/HCPCS: 87635 ==

== ENCOUNTER 2024-02-28 10:00 | Outpatient (CLI) | payer BC, SELFPAY ==
[2024-02-28] MEDS: ALBUTEROL 0.083% 2.5 MG/3 ML NEB IH (10:59)
--- NOTE | 2024-02-28 11:00 | PC.NURSE ---
PFT and 6 Minute Walk Test completed without incident. Albuterol 0.083% given via HHN, per written protocol, Pt tolerated tx well.
== END 2024-02-28 23:59 | disposition home or self-care (01) ==
PROVIDERS: PCP Internal Medicine; Visit Provider Internal Medicine Pulmonary Disease
DX: R06.09 Other forms of dyspnea (principal)
CPT/HCPCS: 94060; 94618; 94726; 94729; J7613

== ENCOUNTER 2024-03-03 10:07 | Outpatient (CLI) | payer BC, SELFPAY ==
--- NOTE | 2024-03-03 10:11 | XR_ITS ---
FINAL REPORT CLINICAL HISTORY: Cervical pain, radiculopathy pain radiates down L arm FINDINGS: AP, lateral and odontoid views of the cervical spine were obtained. There is no prior exam for comparison. There is reversal of the cervical lordosis, which can be seen with spasm or strain. There are postoperative changes from anterior fusion of C6-7. Anterolisthesis of C4 on C5 is likely degenerative. Multilevel degenerative disc disease is present, most pronounced at C5-6. The precervical soft tissues are normal. IMPRESSION: No acute abnormality of the cervical spine. Postoperative and degenerative changes as above. Consider MRI. Reviewed, Interpreted and Dictated by Estrella Carreon MD Transcribed by Angelika Catalan Authenticated and [facility]
== END 2024-03-03 23:59 | disposition home or self-care (01) ==
LOC: RAD 10:08
PROVIDERS: PCP Internal Medicine; Visit Provider Internal Medicine
DX: M54.2 Cervicalgia (principal); M54.10 Radiculopathy, site unspecified
CPT/HCPCS: 72040

== ENCOUNTER 2024-03-19 06:25 | Outpatient (CLI) | payer BC, SELFPAY ==
--- NOTE | 2024-03-19 06:34 | MR_ITS ---
FINAL REPORT CLINICAL HISTORY: Neck/shoulder pain. HX NECK SURGERY 2006. LEFT SIDED NECK PAIN AND UNABLE TO TURN HEAD TO THE LEFT. LEFT ARM PAIN. COMPARISON: None FINDINGS: Multiplanar MR imaging of the cervical spine was performed without contrast. On the sagittal T2-weighted images, disc degeneration is seen at multiple levels. The patient has undergone a prior cervical fusion at the C6-7 level. There is no evidence of fracture. There is mild anterolisthesis of C3 on C4 and C4 on C5. There is mild retrolisthesis of C5 on C6. The cervical spinal cord has an unremarkable appearance without evidence of mass, edema or syrinx. The cervicomedullary junction is normal. C2-3: There is no significant canal stenosis or neural foraminal narrowing. C3-4: A small central disc protrusion is present. There is no significant canal stenosis or neural foraminal narrowing. C4-5: A small central disc protrusion is present. There is no significant canal stenosis or neural foraminal narrowing. C5-6: Disc osteophyte complex is present, producing severe right and moderate left neural foraminal narrowing. There is mild canal stenosis with an AP canal diameter of 9 mm. C6-7: This level has been fused. There is no significant canal stenosis or neural foraminal narrowing. C7-T1: An annular bulge is present. There is no significant canal stenosis or neural foraminal narrowing. IMPRESSION: Prior anterior cervical fusion at the C6-7 level. Mild degenerative change is present, most severe at the C5-6 level as described. Reviewed, Interpreted and Dictated by Mejia Maguire III, MD Transcribed by Davida Luke Authenticated and [facility]
== END 2024-03-19 23:59 | disposition home or self-care (01) ==
PROVIDERS: PCP Internal Medicine; Visit Provider Internal Medicine
DX: M54.2 Cervicalgia (principal); M54.10 Radiculopathy, site unspecified
CPT/HCPCS: 72141

== ENCOUNTER 2024-05-29 11:00 | Outpatient (RCR) | payer BC, SELFPAY ==
--- NOTE | 2024-05-18 13:54 | HMH.PTOPEV ---
PT Outpatient Evaluation Rehab PT Outpatient Evaluation Start: 05/18/24 11:00 Freq: Status: Active Protocol: Document 05/18/24 11:01 JOSE ALFREDO (Rec: 05/18/24 13:54 JOSE ALFREDO [id number]) E-signed By Alicia Apodaca, PT Outpatient Therapy Subjective History Subjective History Pt is a 54 y/o female who reports onset of left-sided neck pain in December of last year after receiving a massage. Pt reports onset of intermittent radiating pain into the left shoulder to the forearm in February of last year. Pt denes pain into the hand/fingers or paresthesia. Pt reports gradual worsening of pain since onset. Pt had a cervical spine MRI on 03/19/24 with impression of Prior anterior cervical fusion at the C6-7 level. Mild degenerative change is present , most severe at the C5-6 level as described. Pt reports she was prescribed a steroid pack but hasn't taken it yet. Pt reports she was also prescribed muscle relaxers which helps with pain and sleeping. Pt reports pain is aggravated by bending/ lifting and turning her head to L. 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 Work: [employer] work Medical History: Cervical fusion in 2006 + median N tension test New diagnosis of cancer in past 12 No months? Chief Complaint Pain Symptom Type Sharp,Shooting Symptoms Relieved By Rest/Positioning,Prescription Meds Symptoms Aggravated By Physical Activity,Lifting Current Functional Limitations Lifting,Housework,Desk Work/ Reading,Driving,Sleeping, Recreation Activity Symptom Description Constant but Variable Level of pain today (0-10) 2 Pain scale - at its best (0-10) 2 Pain scale - at its worst (0-10) 9 Cervical Eval Palpation Cervical Muscles L Cervical Paraspinal,L Suboccipital,L Upper Trapezius Cervical/Thoracic Palpation Findings Tenderness Flexibility Deficits Upper Trapezius Muscle Length (L) Moderate Tightness Levaetor Scapulae Muscle Length (L) Moderate Tightness Pectoralis Major Muscle Length (R) Mild Tightness,(L) Mild Tightness Pectoralis Minor Muscle Length (R) Mild Tightness,(L) Mild Tightness Passive Joint Mobility Cervical PIVM Dec: L C3/4 L C4/5 L C5/6 L C6/7 AROM Cervical Spine Extension Active Range of 40 Motion (degrees) Cervical Spine Flexion Active Range of 15 Motion (degrees) Cervical Spine Right Lateral Flexion 25 Active Range of Motion (degrees) Cervical Spine Left Lateral Flexion 45 Active Range of Motion (degrees) Cervical Spine Right Rotation Active 35 p! Range of Motion (degrees) Cervical Spine Left Rotation Active 45 p! Range of Motion (degrees) MMT Bilateral Deltoid (C5) 5 Normal Biceps Brachii Strength Grade 5 Normal Wrist Extension Strength Grade 5 Normal Triceps Brachii Strength Grade 5 Normal Wrist Flexion Strength Grade 5 Normal Extensor Pollicis Longus Strength Grade 5 Normal Finger Abduction Strength Grade 5 Normal Altered Sensation Comment equal and intact to light touch sensation bilaterally Special Test C-Spine Foraminal Compression ([place]) Positive Left Test C-spine Verterbral Accessory Movements Central P/A [place],Left P/A that Elicit Symptoms [place] Shoulder/Elbow Eval Shoulder Objective Measurements Shoulder MMT Bilateral Lower Trapezius Strength Grade 4- Good- Middle Trapezius Strength Grade 4- Good- Rhomboids Strength Grade 4- Good- Upper Trapezius/Levator Scapulae 4 Good Elbow Objective Measurements Neck Disability Index Neck Disability Index Section 1: Pain Intensity The pain is very mild at moment Section 2: Personal Care (washing, I can look after myself dressing, etc.) normally but it causes extra pain Section 3: Lifting Pain prevents me from lifting heavy weights, but I can manage light to Section 4: Reading I can read as much as I want to with no pain in my neck Section 5: Headaches I have no headaches at all Section 6: Concentration I can concentrate fully when I want to with no difficulty Section 7: Work I can do most of my usual work , but no more Section 8: Driving I can drive my car as long as I want with moderate pain in my neck Section 9: Sleeping My sleep is moderately disturbed (2-3 hrs. sleepless) Section 10: Recreation I am able to engage in most, but not all of my usual recreation NDI Score 14 Outpatient Therapy Assessment Impairments Problems/Impairmments Palpation Tenderness,Impaired Range of Motion,Impaired Strength,Impaired Lifting, Impaired Household Care, Impaired Desk/Computer Activities,Subjective C/O Pain ,Impaired Self Care/Self Management Prognosis Rehab Potential Good Clinical Impression Consistent with Diagnosis Yes Short Term Goals Number of Weeks 3 Increase Range of Motion Yes: Improve B cervical AROM rotation to at least 40-50 Improve Tolerance to Desk/Computer Yes: report improved work Activities space ergonomics to assist with pain Decrease Subjective C/O Pain Yes: Improve pain at worst to 7/10 to improve overall QOL Improve Self Care/Self Management Yes 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 Number of Weeks 6 Increase Range of Motion Yes: Improve cervical AROM ext to 20-25, R LF to at least 35 , B rot to 60 Increase Strength Yes: Improve scapular strength to at least 4-4+/5 grossly to assist w function Restore Ability to Lift Objects to Waist Yes: 10# with pain 5/10 or Level less to assist ADLs Improve Neck Disability Index Score Yes: Improve score to 9 or less to improve overall QOL Decrease Subjective C/O Pain Yes: Improve pain at worst to 5/10 to improve overall QOL Outpatient Therapy Plan of Care Treatment Plan May Include Therapeutic Exercise Including Home Yes Exercise Program Manual Therapy Techniques Yes Neuromuscular Re-education Yes Therapeutic Activities to Return to Yes Previous Functional/Work Level ADL/Self Care Education Yes Mechanical Traction Yes Dry Needling Yes Thermal Modalities Yes Electrical Stimulation Yes Ultrasound/Phonophoresis Yes Iontophoresis Yes Massage Yes Eval/Re-Eval Yes Frequency Times per week 2 Duration Number of Weeks 4-6 Addendums This patient is a candidate for social No or vocational rehab? Patient/Guardian verbally acknowledges Yes understanding of treatment program and consents to further treatment? Patient/Guardian verbally acknowledges Yes understanding of diagnosis, prognosis and goals for treatment? Eval Complexity PT Charges 53857 - Low Complexity PHYSICIAN CERTIFICATION: I certify the specified therapy services for Jenae Ribeiro are required, authorized, and reviewed every 30 days.
== END 2024-05-29 23:59 | disposition home or self-care (01) ==
LOC: PT 11:00
PROVIDERS: Visit Provider Internal Medicine
DX: M54.2 Cervicalgia (principal); M54.10 Radiculopathy, site unspecified
CPT/HCPCS: 97110; 97140; 97163